=== PATIENT | female | born 1945 | race Caucasian/White ===

== ENCOUNTER → 2017-07-02 | Outpatient (CLI) | payer MEDICARE, BC ==
[~2017-07-02] MED LIST: CEPHALEXIN250 M1 PO; NO HOME MEDICATIONS
== END ==
LOC: MC.RAD 07:40
DX: Z12.31 Encounter for screening mammogram for malignant neoplasm of breast (principal)

== ENCOUNTER → 2018-11-25 | Outpatient (CLI) | payer MEDICARE, BC | LOC: MC.RAD 12:54 | DX: R92.2 Inconclusive mammogram (principal); Z98.890 Other specified postprocedural states | CPT/HCPCS: G0279 ==

== ENCOUNTER → 2019-04-12 | Outpatient (CLI) | payer MEDICARE, BC | LOC: MC.RAD 13:57 | DX: N63.10 Unspecified lump in the right breast, unspecified quadrant (principal) | CPT/HCPCS: G0279 ==

== ENCOUNTER → 2019-04-13 | Outpatient (CLI) | payer MEDICARE, BC | LOC: MC.RAD 07:00 | DX: N63.10 Unspecified lump in the right breast, unspecified quadrant (principal) | CPT/HCPCS: 30634 ==

== ENCOUNTER 2019-07-09 08:27 | Emergency (ER) | payer MEDICARE, BC ==
[~2019-07-09] VITALS: Ht 167.6 cm; Wt 58.2 kg
[2019-07-09 08:35] VITALS: BP 152/78
[2019-07-09] MEDS ORDERED: ANUSOL HC CREAM30 GM TP (09:41)
[2019-07-09 09:48] VITALS: PULSE 75; TEMP 97.9
== END 2019-07-09 09:48 | disposition home or self-care (01) ==
LOC: COL.ER 08:27
DX: K64.5 Perianal venous thrombosis (principal); D84.9 Immunodeficiency, unspecified; C50.919 Malignant neoplasm of unspecified site of unspecified female breast

== ENCOUNTER 2019-09-23 12:39 | Emergency (ER) | payer MEDICARE, BC ==
[~2019-09-23] VITALS: Ht 165.1 cm; Wt 59.7 kg
[~2019-09-23 12:39] MED LIST changes: +ANUSOL HC CREAM30 GM TP
[2019-09-23 12:46] VITALS: BP 132/79; PULSE 82; TEMP 98.6
[2019-09-23 14:13] LABS: HEMATOCRIT 36.3 % (37.0-47.0); HEMOGLOBIN 11.2 g/dl (12.5-16.0); MEAN CELL VOLUME 89 fl (80.0-100.0); MEAN CORPUSCULAR HEMOGLOBIN 27 pg (27.0-31.0); MEAN CORPUSCULAR HGB CONC 31 g/dl (33.0-37.0); MEAN PLATELET VOLUME 10.5 fl (7.4-10.4); PLATELET COUNT 246 K/mm3 (130-400); RED BLOOD COUNT 4.09 M/mm3 (4.10-5.30); REDCELL DISTRIBUTION WIDTH-CV 15.9 % (11.5-14.5)
[2019-09-23 14:23] LABS: ALBUMIN 4.2 gm/dL (3.5-5.0); BILIRUBIN,TOTAL 0.2 mg/dL (0.0-1.0); CALCIUM 8.9 mg/dL (8.4-10.2); CREATININE, serum 0.53 (0.52-1.25); POTASSIUM 3.9 mmol/L (3.4-5.0); TOTAL PROTEIN 6.8 gm/dL (6.4-8.2)
[2019-09-23] MEDS ORDERED: DOXYCYCLINE 10100 MG PO (14:47)
[2019-09-23] MEDS ORDERED: PREDNISONE20 MG PO (14:47)
[2019-09-23 14:51] LABS: EOSINOPHIL 3 % (0-4); HYPOCHROMIA 1+; LYMPHOCYTE 12 % (20.0-51.0); NEUTROPHILS 79 % (42.0-75.2); PLATELET ESTIMATE NORMAL (NORMAL)
== END 2019-09-23 15:50 | disposition home or self-care (01) ==
LOC: COL.ER 12:39
PROVIDERS: Emergency Medicine
DX: J01.90 Acute sinusitis, unspecified (principal); Z85.3 Personal history of malignant neoplasm of breast
CPT/HCPCS: J7512

== ENCOUNTER → 2020-06-29 | Outpatient (CLI) | payer MEDICARE, BC ==
[~2020-06-29] MED LIST changes: +DOXYCYCLINE 10100 MG PO; +PREDNISONE20 MG PO
== END ==
LOC: COL.LAB 09:49
DX: Z20.828 Contact with and (suspected) exposure to other viral communicable diseases (principal)

== ENCOUNTER → 2022-11-19 | Outpatient (CLI) | payer MEDICARE, BC | LOC: COL.RAD 11-18 07:30 | DX: J34.89 Other specified disorders of nose and nasal sinuses (principal); J01.90 Acute sinusitis, unspecified; Z82.49 Family history of ischemic heart disease and other diseases of the circulatory system | CPT/HCPCS: Q9967 ==